=== PATIENT | female | born 1990 | race Caucasian/White ===

== ENCOUNTER 2017-12-15 01:06 | Inpatient (IN) | payer BC, OTHER ==
[~2017-12-15 01:06] MED LIST: Buffered Lidocaine 0.9% SYRIN* 5 ML/SYR SYRINGE INTRADERM ONE; ceFOXitin 2 GM IVPREMIX* 2 GM/50 ML BAG IVPB SCH
[2017-12-15] MEDS ORDERED: Sodium Citrate/Citric Acid* 15 ML UDC PO ONE (06:00)
[2017-12-15] MEDS ORDERED: Morphine PF AMP (0.5MG/ML)* 5 MG/10 ML AMP ONE (07:29)
[2017-12-15] MEDS ORDERED: Phenylephrine IV* 40 MCG/ML 10 ML SYRINGE ONE (08:32)
[2017-12-15] MEDS ORDERED: OXYTOCIN* 10 UNITS/ML 1 ML VIAL ONE ×2 (08:32→08:45)
[2017-12-15] MEDS ORDERED: Lidocaine 2% PF * 5 ML VIAL ONE (08:32)
[2017-12-15] MEDS ORDERED: Metoclopramide IV* 5 MG/ML 2 ML VIAL ONE (08:32)
[2017-12-15] MEDS ORDERED: EPHEDrine (Pressors)* 50 MG/ML VIAL ONE (08:32)
[2017-12-15] MEDS ORDERED: Ketorolac INJ* 30 MG/ML 1 ML VIAL IV PRN (08:50)
[2017-12-15] MEDS ORDERED: Naloxone* 0.4 MG/ML 1 ML VIAL IV PRN ×2 (08:50→08:53)
[2017-12-15] MEDS ORDERED: Ondansetron ODT TAB* 4 MG PO PRN (08:50)
[2017-12-15] MEDS ORDERED: fentaNYL* 50 MCG/ML 2 ML VIAL (100 MCG VIAL) IV PRN (08:50)
[2017-12-15] MEDS ORDERED: Ondansetron INJ* 2 MG/ML VIAL PRN ×2 (08:53→14:53)
[2017-12-15] MEDS ORDERED: oxyCODONE/Acetamin 5/325 MG* TAB PO PRN ×2 (08:53→09:32)
[2017-12-15] MEDS ORDERED: Glycerin ADULT SUPP PR PRN (09:32)
[2017-12-15] MEDS ORDERED: Witch Hazel PAD* JAR TOPICAL PRN (09:32)
[2017-12-15] MEDS ORDERED: Acetaminophen TAB* 325 MG PO PRN (09:32)
[2017-12-15] MEDS ORDERED: Dibucaine 1% 28.35 GM TUBE PR PRN (09:32)
[2017-12-15] MEDS ORDERED: Oxytocin in LR* 20 UNITS/1,000 ML BAG IVPB SCH (10:00)
[2017-12-15] MEDS: Simethicone TAB* 80 MG TAB.CHEW PO SCH ×3 (12:47→20:31)
[2017-12-15] MEDS: Docusate CAP* 100 MG PO SCH ×2 (14:29→20:31)
[2017-12-15] MEDS ORDERED: Ondansetron ODT TAB* 4 MG ONE ×2 (14:54→14:55)
[2017-12-15] MEDS: Ketorolac INJ* 30 MG/ML 1 ML VIAL IV PRN (17:52)
[2017-12-16] MEDS: Ketorolac INJ* 30 MG/ML 1 ML VIAL IV PRN ×2 (00:48→06:09)
[2017-12-16] MEDS: Ibuprofen TAB* 600 MG PO PRN ×3 (06:15→18:21)
[2017-12-16 07:16] LABS: Hematocrit 26 % (35-47); Hemoglobin 8.8 g/dl (12.0-16.0); Mean Corpuscular HGB Conc 33 g/dl (31-36); Mean Corpuscular Hemoglobin 29 pg (27-31); Mean Corpuscular Volume 86 fL (80-97); Mean Platelet Volume 9.9 um3 (7.4-10.4); Platelet Count 161 10^3/ul (150-450); Red Blood Count 3.05 10^6/ul (4.00-5.40); Red Cell Distribution Width 14 % (10.5-15); White Blood Count 11.9 10^3/ul (3.5-10.8)
[2017-12-16 07:59] LABS: ABS Basophils 0 10^3/ul (0-0.2); ABS Eosinophils 0.1 10^3/ul (0-0.6); ABS Lymphocytes 1.1 10^3/ul (1.0-4.8); ABS Monocytes 0.9 10^3/ul (0-0.8); ABS Nucleated RBC 0 10^3/ul; Eosinophil % 0.6 % (0-6); Lymphocyte % 9.2 % (25-47); Nucleated Red Blood Cells % 0
[2017-12-16] MEDS: Ferrous Gluconate TAB* 324 MG TAB PO SCH ×2 (08:36→19:26)
[2017-12-16] MEDS: Simethicone TAB* 80 MG TAB.CHEW PO SCH ×4 (08:36→19:26)
[2017-12-16] MEDS: Docusate CAP* 100 MG PO SCH ×3 (08:36→19:26)
--- NOTE | 2017-12-16 09:25 | OP ---
DATE OF OPERATION: 12/15/17 - ROOM #116 DATE OF : 86. SURGEON: Sima Oliver M.D. MARINE ENGINEERING CONSULTANT: Mindi Bailey CNM SECOND MARINE ENGINEERING CONSULTANT: Dr. Elio Gutiérrez. ANESTHESIOLOGIST: Dr. Sr. ANESTHESIA: Spinal. PRE-OP DIAGNOSIS: Intrauterine at 39 weeks, desires repeat section. POST-OP DIAGNOSIS: Intrauterine at 39 weeks, desires repeat section, delivered. OPERATIVE PROCEDURE: Repeat low-transverse section. ESTIMATED BLOOD LOSS: 600 cc. FLUIDS: 2400 cc of crystalloid. URINE OUTPUT: 100 cc of concentrated yellow urine. FINDINGS: Revealed a vertex female infant with Apgars 9 at 1 minute and 9 at 5 minutes. Weight was 7 pounds 13 ounces. Normal appearing tubes and ovaries. Normal manually extracted 3-vessel cord and placenta. No evidence of adhesions. COMPLICATIONS: None apparent. DISPOSITION: Stable to the recovery room. DESCRIPTION OF PROCEDURE: The patient was placed in dorsal lithotomy position. The abdomen was prepped and draped in the sterile standard fashion. The patient was identified using universal protocol for correct procedure, patient, and position. The anesthesia was tested to appropriate level. Incision was made with a scalpel. This was carried down through to the fascia. Fascia was scored in the midline and then extended laterally and superiorly using Burrell scissors. The peritoneum was entered bluntly and the peritoneal incision was extended bluntly. The bladder blade was inserted. The lower uterine segment was identified. An Allis was placed in the lower uterine segment. An incision was made with scalpel. This was carried down to the membranes. The incision was extended laterally and superiorly using bandage scissors. Amniotomy was created for clear fluid. The infant was delivered vertex, anterior posterior shoulder. The cord was allowed to pulse for 60 seconds, and clamped and then cut. The was handed off to awaiting map and chart mounter. Appropriate cord blood was obtained. The placenta was manually extracted. The uterus was exteriorized. Cavity was explored, to be free of any membranes. Uterine incision itself was reapproximated using 0 Vicryl x2 in a running fashion, locked, second layer imbricated. Tubes and ovaries were noted to have a normal appearance. The uterus was returned intra-abdominally and colic gutters were lavaged. Hemostasis was assured at the hysterotomy site. The peritoneum was then reapproximated using 3-0 Vicryl in a running fashion. Subcu and prefascial area was evaluated and noted to be without bleeding and hemostasis was assured. The fascia was reapproximated using 0 Vicryl x2 in a running fashion. The subcu was lavaged and reapproximated using 3-0 Vicryl on the Camper 's fascia and the skin itself was reapproximated using a 4-0 Monocryl in a subcuticular fashion. Mastisol and Steri's were applied. All sponge, needle, instrument, and blade counts were correct throughout the case. The patient tolerated the procedure well and went to the recovery room in stable condition. [id number]/[facility] #: [id number] [facility] HEALTH PARTNERSYoshi
[2017-12-16] MEDS: oxyCODONE/Acetamin 5/325 MG* TAB PO PRN (19:27)
[2017-12-16 20:44] VITALS: BP 105/53
[2017-12-17] MEDS: oxyCODONE/Acetamin 5/325 MG* TAB PO PRN (01:19)
[2017-12-17] MEDS: Ibuprofen TAB* 600 MG PO PRN ×2 (01:19→07:56)
[2017-12-17] MEDS: Ferrous Gluconate TAB* 324 MG TAB PO SCH (09:06)
[2017-12-17] MEDS: Docusate CAP* 100 MG PO SCH (09:06)
[2017-12-17] MEDS: Simethicone TAB* 80 MG TAB.CHEW PO SCH (09:06)
== END 2017-12-17 12:18 | disposition home or self-care (01) | DRG 540 ==
LOC: UNDOADMIN 01:06 → MCHOB 01:06
PROVIDERS: ADMIT Obstetrics & Gynecology; ATTEND Obstetrics & Gynecology
PROC: 4A1HXCZ Monitoring of Products of Conception, Cardiac Rate, External Approach (ICD-10-PCS; 2017-12-15)
PROC: 10D00Z1 Extraction of Products of Conception, Low, Open Approach (ICD-10-PCS; principal; 2017-12-15 07:45)
DX: O34.211 Maternal care for low transverse scar from previous cesarean delivery (principal); O69.1XX0 Labor and delivery complicated by cord around neck, with compression, not applicable or unspecified; Z3A.39 39 weeks gestation of pregnancy; Z37.0 Single live birth; Z88.2 Allergy status to sulfonamides; Z88.1 Allergy status to other antibiotic agents
CPT/HCPCS: 36415; 85025; A9270-GY; J0694; J1885; J2590; J2765

== ENCOUNTER 2019-08-12 08:27 | Emergency (ER) | payer BC, OTHER ==
--- OUTSIDE RECORDS SUMMARY | 2019-08-12 08:37 | XMS REPORT | Continuity of Care Document ---
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 Problems Active Problems Provider Date Mixed anxiety and depressive disorder Onset: 07/28/2015 Raynaud's disease Onset: 07/28/2015 Recurrent urinary tract infection Onset: 07/28/2015 Herpes zoster Onset: 06/27/2005 Migraine with aura Onset: 06/27/2006 Gastroesophageal reflux disease with hiatal hernia Onset: 06/27/2006 Primary fibromyalgia syndrome Onset: 06/27/2007 Social History Type Date Description Comments Sex Unknown Tobacco Use Start: Unknown Never Smoked Cigarettes ETOH Use Rarely consumes alcohol Enjoy Exercising Enjoys exercising Exercise Type/Frequency Exercises regularly Allergies, Adverse Reactions, Alerts Active Allergies Reaction Severity Comments Date Bactrim Hives Moderate 06/27/2019 Hydrocodone Vomiting Severe 06/27/2019 Nitrofurantoin Vomiting Moderate 06/27/2019 Medications Active Medications SIG Qnty Indications Ordering Provider Date Pauline Campuzano MD 07/09/2019 0.35mg Tablets Multi For Her once a day Unknown Tablets Immunizations CPT Code Status Date Vaccine Lot # [id number] Given 04/17/2018 Influenza Virus Vaccine, Quadrivalent, Split, Im Use 6-35mo Vital Signs Date Vital Result Comment 07/09/2019 9:20am Height 64.5 inches 5'4.50" Weight 141.00 lb Heart Rate 76 /min BP Systolic 107 mmHg BP Diastolic 71 mmHg Body Temperature 97.6 F O2 % BldC Oximetry 100 % BMI (Body Mass Index) 23.8 kg/m2 11/13/2015 12:00am Height 64.5 inches Weight 140.19 lb BMI (Body Mass Index) 23.7 kg/m2 Results Description No Information Available Procedures Description No Information Available Medical Devices Description No Information Available Encounters Description No Information Available Assessments Date Code Description Provider 07/09/2019 L20.9 Atopic dermatitis, unspecified Rachel Campuzano MD 07/09/2019 R53.83 Other fatigue Rachel Campuzano MD 07/09/2019 R10.816 Epigastric abdominal tenderness Rachel Campuzano MD 07/09/2019 E55.9 Vitamin D deficiency, unspecified Rachel Campuzano MD 07/09/2019 D50.9 Iron deficiency anemia, unspecified Rachel Campuzano MD Plan of Treatment Future Appointment(s):08/14/2019 4:30 pm - Rachel Camp[facility] MD at [facility]07/09/2019 - Rachel Campuzano MDL20.9 Atopic dermatitis, [id number] Other [id number] Epigastric abdominal utsazfndfeV72.9 Vitamin D deficiency, [id number] Iron deficiency anemia, unspecifiedFollow up:1 month Functional Status Description No Information Available Mental Status Description No Information Available Referrals Description No Information Available
[2019-08-12] MEDS ORDERED: Lidocaine 1% w EPI 1:100,000* MDV 20 ML VIAL INJ ONE (09:36)
[2019-08-12] MEDS ORDERED: Lidocaine 2% w/ EPI 1:200,000* 20 ML SDV VIAL ONE (09:42)
[2019-08-12] MEDS ORDERED: Lidocaine 2% w/ EPI 1:200,000* 20 ML SDV VIAL INJ ONE (09:42)
--- NOTE | 2019-08-12 10:27 | ED ---
GI/ HPI - HPI Summary HPI Summary: Pt. is a 29 y.o female who presents to the ER with complaints of increased pain from hemorrhoids. Pt. notes she was seen at urgent care yesterday and had 2 hemorrhoids incised. Pain improved briefly and worsened today. Sxs are mild in severity. Sitting and touching area makes sxs worse. Nothing improves pain. Pt. notes she has had similar sxs in the past. Denies recent constipation. - History of Current Complaint Chief Complaint: EDRectalPain Time Seen by Provider: 08/12/19 09:16 Stated Complaint: HEMMERHOID PER PT Hx Obtained From: Patient Hx Last Menstrual Period: nexplanon Pain Intensity: 4 - Allergy/Home Medications Allergies/Adverse Reactions: Allergies Allergy/AdvReac Type Severity Reaction Status Date / Time nitrofurantoin Allergy Vomiting Verified 08/12/19 08:31 Sulfa (Sulfonamide Allergy Hives Verified 08/12/19 08:31 Antibiotics) hydrocodone AdvReac Vomiting Verified 08/12/19 08:31 PMH/Surg Hx/FS Hx/Imm Hx Previously Healthy: Yes Endocrine/Hematology History: Denies: Hx Diabetes, Hx Thyroid Disease Cardiovascular History: Denies: Hx Hypertension Respiratory History: Denies: Hx Asthma, Hx Chronic Obstructive Pulmonary Disease (COPD) GI History: Denies: Hx Ulcer History: Denies: Hx Kidney Infection, Other Problems/Disorders Psychiatric History: Reports: Hx Depression Denies: Hx Anxiety, Other Psychiatric Issues/Disorders - Surgical History Surgery Procedure, Year, and Place: teeth extraction. . D&C - emergency - blood transfusion. urethra stretched twice Infectious Disease History: No Infectious Disease History: Reports: Hx Shingles - x4 Denies: Hx Clostridium Difficile, Hx Hepatitis, Hx Human Immunodeficiency Virus (HIV), Hx of Known/Suspected MRSA, Hx Tuberculosis, Hx Known/Suspected VRE , Hx Known/Suspected VRSA, History Other Infectious Disease, Traveled Outside the [place] in Last 30 Days - Family History Known Family History: Positive: Non-Contributory - Social History Occupation: Employed Full-time Lives: With Family Alcohol Use: Rare Substance Use Type: Reports: None Smoking Status (MU): Never Smoked Tobacco Have You Smoked in the Last Year: No Review of Systems - ROS Summary Review of Systems Summary: Vitamin TAB* 1 tab PO DAILY 12/06/17 [History Confirmed 12/15/17] Zantac TAB (NF) 1 tab PO BID 12/06/17 [History Confirmed 12/15/17] Ibuprofen TAB* [Motrin TAB* 600 MG] 600 mg PO Q6H PRN #30 tab 12/17/17 [Rx] Constitutional: Negative Negative: Fever Positive: Other - Rectal pain All Other Systems Reviewed And Are Negative: Yes Physical Exam Triage Information Reviewed: Yes Vital Signs On Initial Exam: Initial Vitals Temp Pulse Resp BP Pulse Ox 98.4 F 83 19 131/80 100 08/12/19 08:30 08/12/19 08:30 08/12/19 08:30 08/12/19 08:30 08/12/19 08:30 Completion Of Physical Exam Limited Due To: Dementia Appearance: Positive: Well-Appearing - Pt. lying on bed in NAD. Skin: Positive: Warm, Dry Head/Face: Positive: Normal Head/Face Inspection Eyes: Positive: Normal, EOMI, EDUARDO Neck: Positive: Supple Abdomen Description: Positive: Other: - Rectal exam performed with pt.'s nurse, Germaine. Two pea sized, hard, purple, painful hemorrhoids noted. No active bleeding. Neurological: Positive: Normal, CN Intact II-III Psychiatric: Positive: Affect/Mood Appropriate Procedures - Sedation Patient Received Moderate/Deep Sedation with Procedure: No Diagnostics - Vital Signs Vital Signs Temp Pulse Resp BP Pulse Ox 08/12/19 09:43 80 105/68 100 08/12/19 09:13 82 111/71 98 08/12/19 09:00 81 100 08/12/19 08:44 85 100 08/12/19 08:43 89 121/69 100 08/12/19 08:30 98.4 F 83 19 131/80 100 - Laboratory Lab Statement: Any lab studies that have been ordered have been reviewed, and results considered in the medical decision making process. GIGU Course/Dx - Course Course Of Treatment: Pt. with two thrombosed hemorrhoids. Case discussed with Dr. Simmons who recommended surgical consults. Case discussed with oncall surgery, Dr. San, who examined and incised hemorrhoids in ED. Please see her procederal note for further details. Pt. feeling better after procedure. A few days of ultram rx for pain. Stool softener OTC. Sitz bath provided. Pt. will f.u with Dr. San in office next week. Will return to ER if sxs change or worsen. Pt. understands and agrees with plan. - Diagnoses Differential Diagnoses - Female: Hemorrhoids, Prolapsed Rectum, Rectal Fissure Provider Diagnoses: Thrombosed hemorrhoids Discharge ED - Sign-Out/Discharge Documenting (check all that apply): Patient Departure - Discharge Plan Condition: Improved Disposition: HOME Prescriptions: Tramadol HCl [Ultram] 50 mg PO Q6H #12 tablet MDD 4 Patient Education Materials: Hemorrhoids (ED) Referrals: Rachel Snyder MD [Primary Care Provider] - Glenda San MD [Medical Doctor] - Additional Instructions: Schedule a follow up appointment with Dr. Mena Thompson bathes at least 4x a day Pain medication as directed Return to ER if symptoms change or worsen - Billing Disposition and Condition Condition: IMPROVED Disposition: Home - Attestation Statements Provider Attestation: I was available for consult. This patient was seen by the [facility]INCENT. The patient was not presented to, seen by, or examined by me. -Yoel
--- NOTE | 2019-08-12 11:18 | CONSULT ---
Consult Consult: DATE OF CONSULT: 08/12/19 REASON FOR CONSULT: Thrombosed hemorrhoids HPI: Radha Macias is a 29 year-old woman otherwise healthy who presented to the ED with thrombosed hemorrhoids. She first had anal pain on 08/10. She was seen in urgent care yesterday where 2 hemorrhoids were lanced. There apparently was a third hemorrhoid that was smaller than the other 2 so was not lanced. The pain initially improved. She has used Tylenol for pain control which has not helped much. This morning she continued to have pain so returned to urgent care. She was then sent to the ED. The patient had thrombosed hemorrhoids about 2 years ago when she was . They were lanced, and the patient had pain relief almost immediately. She denies constipation recently although occasionally has constipation. She denies blood in the stool. She has seen a little blood after the hemorrhoids were incised yesterday. She denies fevers or chills, chest pain, shortness of breath, abdominal pain, nausea or vomiting. PMH: Reynaud's disease PSH: None HOME MEDICATIONS: None ALLERGIES: nitrofurantoin Allergy (Verified 08/12/19 08:31) Vomiting Sulfa (Sulfonamide Antibiotics) Allergy (Verified 08/12/19 08:31) Hives hydrocodone Adverse Reaction (Verified 08/12/19 08:31) Vomiting pt states she does not take due to vomitting, unsure if truly allergic, but definitely sensitive. FH: Father with depression. Mother alive and well. Brother and sister alive and well. SH: Lives with and 2 kids. Works as a teacher in [place]. Denies smoking or drug use. Rarely drinks alcohol. ROS: 10-point review of systems was obtained. Pertinent positives and negatives are in the HPI. PHYSICAL EXAM: Temp Pulse Resp BP Pulse Ox 97.3 F 84 16 105/66 98 08/12/19 11:54 08/12/19 11:54 08/12/19 11:54 08/12/19 11:54 08/12/19 11:54 General: NAD. Head: Normocephalic and atraumatic. Eyes: Pupils equal. No scleral icterus. Mouth: Moist mucous membranes. Neck: Supple. Trachea midline. CV: RRR Respiratory: Clear to auscultation. Abdomen: Soft, nontender, nondistended. Rectal: 2 thrombosed hemorrhoids on the right with the larger one anterior. No surrounding erythema. There is a hemorrhoid posterior to the other two that appears to have been drained. It appears that the middle hemorrhoid has an incision that has closed. Extremities: Warm. No pedal edema. Skin: Intact. Warm and dry. Neuro: Alert, oriented x3. Moves all extremities equally. Psych: Normal affect. IMPRESSION: 29F with thrombosed external hemorrhoids. PLAN: Incision and drainage performed (see separate procedure note) Sitz baths 2-3 times daily or after bowel movements. Dry gauze over wound, change as needed. Tramadol prescribed by ED. Recommended to patient that she take Miralax or stool softener while on narcotic pain medication to avoid constipation. May also take Tylenol as needed. Follow up in clinic with me later this week. She will call the clinic tomorrow to make an appt. She was instructed to call the clinic earlier if the pain persists or worsens. She was also instructed to call the clinic or return to ED if there is significant bleeding (enough to saturate gauze).
--- NOTE | 2019-08-12 11:31 | OP ---
Operative Report - Blank - Operative Report Date of Operation: 08/12/19 Note: PRE-OP DX: Thrombosed hemorrhoids POST-OP DX: Same PROCEDURE: Excision of hemorrhoids SURGEON: Glenda San MD ANESTHESIA: 2% lidocaine with epinephrine 1:200,000. Total of 4ml FINDINGS: Two thrombosed hemorrhoids, 1 hemorrhoid posteriorly that appears to be healing. INDICATION: Radha Macias is a 29 year-old healthy woman who presented to the ED with thrombosed hemorrhoids for the past 2 days. Two hemorrhoids were opened in urgent care yesterday. However, she continued to have pain, so she presented to the ED. Written consent was obtained from the patient. DESCRIPTION: The patient was in the right lateral decubitus position on the stretcher. Lidocaine with epinephrine was injected into the two anterior hemorrhoids. An ellipitical incision in the skin overlying the anterior hemorrhoid was made with an 11 blade. There was drainage of a small amount of blood. I could see a previous incision in the middle hemorrhoid that had closed. I made an ellipitical incision in the skin overlying the hemorrhoid. There was a minimal amount of blood drained. I pushed on the two hemorrhoids to evacuate any residual clot or fluid, and there was only minimal amount of fluid. There was good hemostasis. Dry gauze was placed over the incisions. The patient tolerated the procedure well.
[2019-08-12 11:54] VITALS: BP 105/66
== END 2019-08-12 11:54 | disposition home or self-care (01) ==
LOC: ED 08:27
DX: K64.5 Perianal venous thrombosis (principal); F32.9 Major depressive disorder, single episode, unspecified; Z79.899 Other long term (current) drug therapy; Z88.1 Allergy status to other antibiotic agents; Z88.2 Allergy status to sulfonamides; Z88.5 Allergy status to narcotic agent
CPT/HCPCS: 46083; 99282